=== PATIENT | female | born 1950 | race Caucasian/White ===

== ENCOUNTER 2016-05-14 16:02 | Emergency (ER) | payer MEDICARE ==
[~2016-05-14] VITALS: Ht 160 cm; Wt 59.0 kg
[2016-05-14] MEDS ORDERED: DiphenhydrAMINE 50mg/ml Inj IVP ONE (16:30)
[2016-05-14] MEDS ORDERED: Dexamethasone 4mg/ml vial IVP ONE (16:30)
--- NOTE | 2016-05-14 16:36 | Emergency Room Report ---
History of Present Illness General Chief Complaint: Skin Rash/Abscess Source: Patient Present Illness HPI Patient is a 66-year-old female presented after increased skin rash. Patient onset of symptoms over the past few hours. Patient had been taking an YANETH inhibitor. She had recently started taking [id number] sleeping. Patient prior history of COPD. She denied recent illness. She had not been having any new food or new creams. She reported having a gradual onset of generalized itching she denied any difficulty breathing. Allergies: Coded Allergies: CODEINE (Verified Allergy, Unknown, 05/14/16) Patient History Past Medical History: see triage record Now: No Reviewed Nursing Documentation: PMH: Agreed, PSxH: Agreed Nursing Documentation-PMH Past Medical History: No History, Except For Hx COPD: Yes Review of Systems All Other Systems: negative except mentioned in HPI Physical Exam Vital Signs Date Time Temp Pulse Resp B/P Pulse Ox O2 Delivery O2 Flow Rate FiO2 05/14/16 16:13 98.1 84 15 140/88 100 Room Air Sp02 EP Interpretation: reviewed, normal General Appearance: normal inspection, well appearing, no apparent distress, alert, GCS 15 Head: atraumatic ENT: normal ENT inspection, hearing grossly normal, normal voice, other - labial swelling without tongue swelling, uvula midline voice normal Neck: normal inspection, full range of motion, supple, no bony tend Respiratory: normal inspection, lungs clear, normal breath sounds, no respiratory distress, no retraction, no wheezing Cardiovascular #1: regular rate, rhythm, no edema Gastrointestinal: normal inspection, normal bowel sounds, non tender, soft, no guarding, no hernia Genitourinary: no CVA tenderness Musculoskeletal: normal inspection, back normal, normal range of motion Neurologic: normal inspection, alert, responsive, speech normal Psychiatric: normal inspection, judgement/insight normal, mood/affect normal Skin: other - generalized urticarial rash Medical Decision Making Diagnostic Impression: Primary Impression: Allergic reaction ER Course Patient presented for skin rash. Differential diagnosis included was not limited to Law-Tereso syndrome, urticaria, erythema multiforme, contact dermatitis. Patient's benign exam and does not appear to require any further imaging or laboratory testing at this time. The patient was given IV steroids as well as IV Benadryl. The patient is advised to discontinue her YANETH inhibitor until she was seen by her primary care physician. Patient was noted to have improvement in her symptoms. Patient given prescription for prednisone and Benadryl. The patient was advised to return if she began having increased difficulty breathing dizziness or other concerns Last Vital Signs Date Time Temp Pulse Resp B/P Pulse Ox O2 Delivery O2 Flow Rate FiO2 05/14/16 16:13 98.1 84 15 140/88 100 Room Air Status: improved Disposition: HOME, SELF-CARE Condition: Stable Scripts Famotidine (PEPCID) 20 Mg Tablet 20 MG ORAL DAILY, #7 TAB 0 Refills Prov: Robert Moseley 05/14/16 Diphenhydramine Hcl* (BENADRYL*) 25 Mg Capsule 25 MG ORAL Q6H Y for Itching, #30 CAP Prov: Robert Moseley 05/14/16 Prednisone* (PREDNISONE*) 20 Mg Tablet 40 MG ORAL DAILY, #10 TAB Prov: Robert Moseley 05/14/16 Robert Moseley May 14, 2016 16:36
[2016-05-14] MEDS ORDERED: Famotidine 20 MG/ 2ML VIAL IVP ONE (16:45)
[2016-05-14 17:25] VITALS: BP 137/84
[2016-05-14] MEDS ORDERED: PEPCID20 MG ORAL (17:27)
[2016-05-14] MEDS ORDERED: BENADRYL25 MG ORAL (17:27)
[2016-05-14] MEDS ORDERED: PREDNISONE20 MG ORAL (17:27)
[2016-05-14 17:39] VITALS: BP 137/84
== END 2016-05-14 17:40 | disposition home or self-care (01) ==
LOC: EMR 17:00
DX: T78.40XA Allergy, unspecified, initial encounter (principal); J44.9 Chronic obstructive pulmonary disease, unspecified; Z88.6 Allergy status to analgesic agent; X58.XXXA Exposure to other specified factors, initial encounter; Y92.9 Unspecified place or not applicable; Y99.8 Other external cause status
CPT/HCPCS: 96374; 96375; 99284; J1100; J1200; S0028